=== PATIENT | male | born 2000 | race African-American/Black ===

== ENCOUNTER 2022-10-23 08:45 | Outpatient (REF) | payer OTHER, SELFPAY ==
--- NOTE | ~2022-10-23 | XR_ITS ---
EXAMINATION: XR CHEST CLINICAL INFORMATION: Positive PPD COMPARISON: None available. TECHNIQUE: 2 views of the chest were obtained. FINDINGS: No significant abnormality is noted involving the heart, lungs, mediastinum, bony thorax or soft tissues. XR/XR chest 2V IMPRESSION: Unremarkable chest examination.
== END 2022-10-23 08:46 | disposition home or self-care (01) ==
LOC: HO.HHCX 08:45
PROVIDERS: PCP Internal Medicine; Visit Provider Internal Medicine
DX: A15.0 Tuberculosis of lung (principal)
CPT/HCPCS: 71046

== ENCOUNTER 2024-11-07 15:41 | Outpatient (REF) | payer OTHER, SELFPAY ==
[2024-11-07 18:28] LABS: Iron 151 mcg/dL (45-160); Percent Iron Saturation 47 % (15-50); Total Iron Binding Capacity 321 mcg/dL (228-428); Unsaturated Iron Binding 170 ug/dL
[2024-11-07 18:43] LABS: TSH reflex Free T4 0.81 uIU/mL (0.32-4.0)
[2024-11-07 18:58] LABS: Vitamin B12 594 pg/mL (200-900)
== END 2024-11-07 15:42 | disposition home or self-care (01) ==
LOC: HO.CHCLDS 15:41
PROVIDERS: Visit Provider Internal Medicine
DX: F32.4 Major depressive disorder, single episode, in partial remission (principal)
CPT/HCPCS: 36415; 82607; 82746; 83540; 84443